=== PATIENT | male | born 1990 ===

== ENCOUNTER 2017-09-21 19:25 | Emergency (ER) | payer SELFPAY ==
[2017-09-21 19:43] VITALS: BP 144/84; PULSE 56; RESP 16; TEMP 98.7; O2SAT 100
--- NOTE | 2017-09-21 20:44 | C.PDOC ---
History Of Present Illness Patient is a 27 yo male who presents to the ED with a complaint of mild BRICE and facial abrasions s/p injury at work. Patient states he was hit from behind with a driveable construction machine and subsequently fell forward onto face. Patient admits to wearing hard hat during incident and stood up right away, denying LOC. Patient states he went home at 2pm pm and took Motrin, but was concerned with bleeding wounds on face, prompting visit. Patient denies dizziness, nausea, vomiting, or photophobia. - HPI Time Seen by Provider: 09/21/17 20:05 Chief Complaint (Nursing): Trauma History Per: Patient History/Exam Limitations: no limitations Onset/Duration Of Symptoms: Hrs (1 pm today) Injury Occurred (Timing): Hours Ago: (1 pm) Recent travel outside of the [place]: No Past Medical History Reviewed: Historical Data, Nursing Documentation, Vital Signs Vital Signs: Last Vital Signs Temp 98.7 F 09/21/17 19:41 Pulse 56 L 09/21/17 19:41 Resp 16 09/21/17 19:41 BP 144/84 09/21/17 19:41 Pulse Ox 100 09/22/17 03:58 - Medical History PMH: No Chronic Diseases Surgical History: No Surg Hx Family History: States: No Known Family Hx - Social History Hx Tobacco Use: No Hx Alcohol Use: No Hx Substance Use: No Review Of Systems Eyes: Negative for: Vision Change (negative photophobia) Gastrointestinal: Negative for: Nausea, Vomiting Skin: Positive for: Other (facial wounds) Neurological: Positive for: Headache (mild), Other (denies LOC). Negative for: Dizziness Physical Exam - Physical Exam Appears: No Acute Distress Skin: Other (small excoriations to face; two 0.25cm lacerations to forehead; abrasion to left lateral nasal area) Head: Atraumatic, Normacephalic, Other (negative hematoma of scalp; negative facial bone tenderness) Eye(s): bilateral: Normal Inspection, PERRL, EOMI Nose: Normal, No Epistaxis, No Tenderness (negative nasal bone tenderness), No Septal Hematoma Oral Mucosa: Moist Neck: Normal ROM, No Midline Cervical Tenderness, No Paracervical Tenderness, Supple Extremity: Normal ROM, Other (good strength) Neurological/Psych: Oriented x3, Normal Speech, Normal Cognition, Normal Motor, Normal Sensation Gait: Steady (fully ambulatory) ED Course And Treatment O2 Sat by Pulse Oximetry: 100 Pulse Ox Interpretation: Normal Progress Note: Motrin tab administered. 1 steristrip applied to each forehead laceration. I discussed the risk (radiation) and benefit (finding a problem needing surgery) with the patient. The patient is acting normally and has a normal neurological exam. The likelihood of finding a lesion needing intervention on the CT scan is extremely low. Patient agrees that at this time no CT scan will be done. If there is any change or new concern, the patient will return as soon as possible to the ED for further evaluation. Head injury instructions given to patient and advised to return to ED if symptoms worsen. Laceration - Laceration Repair 2 forehead lacerations Wound Length (In cm): 0.25 Description Of Wound: Linear, Clean Wound Examination: Irrigated With Saline, No FB With Wound Exploration Wound Closure: Steri Strips (1 for each laceration), Skin Glue (dermabond) Wound Complexity: Simple (well tolerated) Disposition Counseled Patient/Family Regarding: Diagnosis, Need For Followup, Rx Given - Disposition Referrals: [facility] [Outside] Disposition: HOME/ ROUTINE Disposition Time: 20:42 Condition: STABLE Additional Instructions: Please follow up with PMD in 1-2 days Tylenol or motrin for pain Return to ER if severe headache, vomiting, unsteady gait, lethargy or worse Instructions: Minor Head Injury (DC), Skin Abrasions (DC) Forms: [facility] (French) - Clinical Impression Clinical Impression: Head injury due to trauma, Abrasion of face - Scribe Statement The provider has reviewed the documentation as recorded by the Scribflaco Diallo All medical record entries made by the Sajanibflaco were at my direction and personally dictated by me. I have reviewed the chart and agree that the record accurately reflects my personal performance of the history, physical exam, medical decision making, and the department course for this patient. I have also personally directed, reviewed, and agree with the discharge instructions and disposition.
== END 2017-09-21 21:25 | disposition home or self-care (01) ==
LOC: C.ER 19:25
DX: S01.81XA Laceration without foreign body of other part of head, initial encounter (principal); S00.31XA Abrasion of nose, initial encounter; W18.30XA Fall on same level, unspecified, initial encounter; Y92.89 Other specified places as the place of occurrence of the external cause; Y99.0 Civilian activity done for income or pay